=== PATIENT | female | born 1960 | race Caucasian/White ===

== ENCOUNTER 2019-05-11 08:23 | Emergency (ER) | payer OTHER ==
[~2019-05-11] VITALS: Ht 157.5 cm; Wt 72.6 kg
[~2019-05-11 08:23] MED LIST: ADVAIR 250-501 EACH INH; ADVIL200 MG PO; ATIVAN0.5 MG PO; COMBIVENT RESPIM4 GM INH; DOXYCYCLINE HY100 MG PO; EFFEXOR XR150 MG PO; FLOVENT HFA12 G1 INH; GABAPENTIN300 MG PO; IPRAT-ALBUT 0.5-3 ML INH; LEXAPRO20 MG PO; LISINOPRIL-HCT1 EAC2 PO; LISINOPRIL40 MG PO; LOMOTIL TABLET1 EACH PO; LORAZEPAM0.5 MG PO; LORAZEPAM1 MG PO; MELATONIN5 M2 PO; NATURAL VEG LA1 EACH PO; OMEPRAZOLE20 MG PO; PANTOPRAZOLE SO40 MG PO; PROAIR HFA8.5 GM INH; QVAR REDIHALE10.6 G1; RANITIDINE HCL150 MG; SENNA PLUS TAB1 EACH PO; SPIRIVA18 MCG INH; TYLENOL EXTRA500 MG PO; TYLENOL325 MG PO; UNISOM25 MG PO; VENLAFAXINE HCL50 MG PO; VENTOLIN HFA18 GM INH; ZOFRAN ODT4 MG SL; ZOFRAN ODT8 MG PO
--- OUTSIDE RECORDS SUMMARY | 2019-05-11 08:26 | XMS ---
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 Care History Medical/Surgical 01/04/2018 [facility] - PATIENT HAS A FOLLOW UP APT WITH DR KOO- 01/11 @ 8:00AM. - Patient is currently established with [facility]. If patient is seen in the ED during business hours. Please contact CHWs at [facility]. Care Recommendation: This patient has had 5 or more Emergency Department visits in the last 12 months.\T\nbsp; Patient requires education on the scope and purpose of the ED as an acute care provider not a Primary Care Provider and should not be utilized for chronic conditions.\T\nbsp; These are guidelines and the provider should exercise clinical judgment when providing care. E.D. VISIT COUNT (12 MO.) 1 [facility] TOTAL 1 NOTE: Visits indicate total known visits. ED/UCC VISIT TRACKING (12 MO.) 05/11/2019 08:23 [facility] [place] TYPE: Emergency COMPLAINT: - FLU SYMPTOMS, HX OF COPD INPATIENT VISIT TRACKING (12 MO.) No inpatient visits to display in this time frame [email or web address]
[2019-05-11] MEDS ORDERED: TRELEGY ELLIPT1 EACH INH (09:06)
[2019-05-11] MEDS ORDERED: PREDNISONE20 MG PO (09:33)
== END 2019-05-11 09:42 | disposition home or self-care (01) ==
LOC: ED 08:23
DX: J44.1 Chronic obstructive pulmonary disease with (acute) exacerbation (principal); I10 Essential (primary) hypertension; Z87.891 Personal history of nicotine dependence; Z88.0 Allergy status to penicillin; Z88.5 Allergy status to narcotic agent; Z88.2 Allergy status to sulfonamides; Z88.1 Allergy status to other antibiotic agents; Z79.899 Other long term (current) drug therapy
CPT/HCPCS: 71046; 99284-25; J7512

== ENCOUNTER 2021-02-13 08:45 | Emergency (ER) | payer OTHER ==
[~2021-02-13] VITALS: Ht 157.5 cm; Wt 68.5 kg
[~2021-02-13 08:45] MED LIST changes: +PREDNISONE20 MG PO; +TRELEGY ELLIPT1 EACH INH
--- OUTSIDE RECORDS SUMMARY | 2021-02-13 08:48 | XMS ---
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 - Patient is currently established with [facility]. If patient is seen in the ED during business hours. Please contact CHWs at [facility]. Care Recommendation: This patient has had [...] care. E.D. VISIT COUNT (12 MO.) 1 [facility] TOTAL 1 NOTE: Visits indicate total known visits. ED/UCC VISIT TRACKING (12 MO.) 02/13/2021 08:46 [facility] [place] TYPE: Emergency COMPLAINT: - BLOODY CAUGH INPATIENT VISIT TRACKING (12 MO.) No inpatient visits to display in this time frame [email or web address]
[2021-02-13] MEDS ORDERED: PREDNISONE20 MG PO (09:53)
== END 2021-02-13 10:06 | disposition home or self-care (01) ==
LOC: ED 08:45
DX: J20.9 Acute bronchitis, unspecified (principal); I10 Essential (primary) hypertension; Z87.891 Personal history of nicotine dependence; Z88.0 Allergy status to penicillin; Z88.5 Allergy status to narcotic agent; Z88.1 Allergy status to other antibiotic agents; Z88.2 Allergy status to sulfonamides; Z79.899 Other long term (current) drug therapy
CPT/HCPCS: 71046; 99283-25; J7512

== ENCOUNTER 2021-07-18 14:41 | Emergency (ER) | payer OTHER ==
[~2021-07-18] VITALS: Ht 157.5 cm; Wt 68.5 kg
--- OUTSIDE RECORDS SUMMARY | 2021-07-18 14:44 | XMS ---
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 Koo on 02/29/2020 02/14/2021 [facility] - Patient is currently established with [facility]. If patient is seen in the ED during business hours. Please contact CHWs at [facility]. Care Recommendation: This patient has had 5 or more Emergency Department visits in the last 12 months. Patient requires education on the scope and purpose of the ED as an acute care provider not a Primary Care Provider and should not be utilized for chronic conditions. These are guidelines and the provider should exercise clinical judgment when providing care. E.D. VISIT COUNT (12 MO.) 2 [facility]ALY[facility] Villatoro TOTAL 2 NOTE: Visits indicate total known visits. ED/UCC VISIT TRACKING (12 MO.) 07/18/2021 14:41 [facility] [place] TYPE: Emergency COMPLAINT: - SOB 02/13/2021 08:46 [facility] [place] TYPE: Emergency COMPLAINT: - BLOODY CAUGH DIAGNOSES: - Other assisted (current) drug therapy - Acute bronchitis, unspecified - COUGH, UNSPECIFIED - Allergy status to penicillin - Personal history of nicotine dependence - Essential (primary) hypertension - Allergy status to sulfonamides - Allergy status to narcotic agent - Allergy status to other antibiotic agents INPATIENT VISIT TRACKING (12 MO.) No inpatient visits to display in this time frame [email or web address]
[2021-07-18] MEDS ORDERED: PREDNISONE20 MG PO (18:16)
== END 2021-07-18 18:32 | disposition home or self-care (01) ==
LOC: ED 14:41
DX: J44.1 Chronic obstructive pulmonary disease with (acute) exacerbation (principal); I10 Essential (primary) hypertension; J44.9 Chronic obstructive pulmonary disease, unspecified; Z87.891 Personal history of nicotine dependence; Z88.0 Allergy status to penicillin; Z88.5 Allergy status to narcotic agent; Z88.2 Allergy status to sulfonamides; Z79.899 Other long term (current) drug therapy; Z79.52 Long term (current) use of systemic steroids; Z20.822 Contact with and (suspected) exposure to COVID-19
CPT/HCPCS: 71045; 87502; 94640; 99285-25; C9803; J7512; U0003

== ENCOUNTER 2021-08-08 17:11 | Emergency (ER) | payer OTHER ==
[~2021-08-08] VITALS: Ht 157.5 cm; Wt 68.5 kg
--- OUTSIDE RECORDS SUMMARY | 2021-08-08 17:14 | XMS ---
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 Mackenzie on 02/29/2020 02/14/2021 [facility] - Patient is currently established with [facility]. If patient is seen in the ED during business hours. Please contact CHWs at [facility]. Care Recommendation: This patient has [...] providing care. E.D. VISIT COUNT (12 MO.) [address] [facility] TOTAL 3 NOTE: Visits indicate total known visits. ED/UCC VISIT TRACKING (12 MO.) 08/08/2021 17:11 [facility] [place] TYPE: Emergency COMPLAINT: - SOB 07/18/2021 14:41 [facility] [place] TYPE: Emergency COMPLAINT: - SOB DIAGNOSES: - Chronic obstructive pulmonary disease with (acute) exacerbation - Allergy status to sulfonamides - Personal history of nicotine dependence - Allergy status to narcotic agent - Allergy status to penicillin - Chronic obstructive pulmonary disease, unspecified - Shortness of breath - residential (current) use of systemic steroids - Essential (primary) hypertension - Other continuous churn buttermaker (current) drug therapy - Contact with and (suspected) exposure to COVID-19 02/13/2021 08:46 [facility] [place] TYPE: Emergency COMPLAINT: - BLOODY CAUGH DIAGNOSES: - Other continuous churn buttermaker (current) drug therapy - Acute bronchitis, unspecified - COUGH, UNSPECIFIED - Allergy status to penicillin - Personal history of nicotine dependence - Essential (primary) hypertension - Allergy status to sulfonamides - Allergy status to narcotic agent - Allergy status to other antibiotic agents INPATIENT VISIT TRACKING (12 MO.) No inpatient visits to display in this time frame [email or web address]
[2021-08-08] MEDS ORDERED: IPRAT-ALBUT 0.5-3 ML INH (20:53)
[2021-08-08] MEDS ORDERED: medrol dose pack (20:53)
[2021-08-08] MEDS ORDERED: ZITHROMAX500 MG PO (20:53)
--- NOTE | 2021-08-08 21:32 | EKG ---
[facility] [address] [place], [place] [address] Signed Normal sinus rhythm Normal ECG When compared with ECG of 28-JAN-2018 11:33, No significant change was found Confirmed by MICHAEL DE LA GARZA MD ([id number]) on 08/08/2021 9:32:09 PM Electronically Signed By: MICHAEL DE LA GARZA MD 08/08/212131 PATIENT NAME: ZACHARY OBRIEN Electrocardiogram DATE OF : 58 PHYSICIAN: MICHAEL DE LA GARZA MD REPORT #: [id number] REPORT IS CONFIDENTIAL AND NOT TO BE RELEASED WITHOUT AUTHORIZATION
== END 2021-08-08 21:49 | disposition home or self-care (01) ==
LOC: ED 17:11
DX: J44.1 Chronic obstructive pulmonary disease with (acute) exacerbation (principal); I10 Essential (primary) hypertension; Z87.891 Personal history of nicotine dependence; Z88.0 Allergy status to penicillin; Z88.5 Allergy status to narcotic agent; Z88.8 Allergy status to other drugs, medicaments and biological substances; Z79.899 Other long term (current) drug therapy; Z79.52 Long term (current) use of systemic steroids; Z79.51 Long term (current) use of inhaled steroids
CPT/HCPCS: 36415; 71045; 80053; 83735; 83880; 84484; 85025; 93005; 93010; 94640; 94645; 96374; 99285-25; A9270; J2930

== ENCOUNTER 2022-12-08 11:08 | Emergency (ER) | payer MEDICARE, OTHER ==
[~2022-12-08] VITALS: Ht 157.5 cm; Wt 68.5 kg
[~2022-12-08 11:08] MED LIST changes: +ZITHROMAX500 MG PO; +medrol dose pack
--- OUTSIDE RECORDS SUMMARY | 2022-12-08 11:12 | XMS ---
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 CARE PROVIDERS EBER KOOCOLM Internal Medicine 02/14/2021-Current PHONE: Unknown -, [place]- Dentist: Claims Service Adjustor [facility] PHONE: [phone] Care Guidelines exist for the following facilities: [facility] ( 08/05/2019 ) Care History Medical/Surgical 02/15/2021 [facility] Follow up with Dr. Koo on 02/29/2020 02/14/2021 [facility] - Patient is currently established with [facility]. If patient is seen in the ED during business hours. Please contact CHWs at [facility]. Care Recommendation: This patient has had [...] 1 NOTE: Visits indicate total known visits. ED/C VISIT TRACKING (12 MO.) 12/08/2022 11:08 [facility] [place] TYPE: Emergency COMPLAINT: - SOB, CHEST PAIN INPATIENT VISIT TRACKING (12 MO.) No inpatient visits to display in this time frame [email or web address]
[2022-12-08 11:43] LABS: BASOPHILS 0.7 % (0-2); EOSINOPHILS 1.3 % (0-6); HEMATOCRIT 44.1 % (35.0-50.0); HEMOGLOBIN 14.8 g/dL (12.0-18.0); LYMPHOCYTES 21.9 % (24-44); MCH 32.9 (27-36); MCHC 33.6 g/dl (30-36); MCV 97.9 fl (81-99); MONOCYTES 7.8 % (0-12); NEUTROPHILS 68.3 % (39-80); PLATELET COUNT 235 K/uL (140-440); RBC 4.51 M/ul (4.3-5.7); RDW 14.7 (10.5-15.0)
[2022-12-08 12:05] LABS: ALBUMIN 3.9 g/dL (3.4-5.0); ALBUMIN/GLOBULIN RATIO 1.26 (1.1-2.4); BILIRUBIN, TOTAL 0.5 ng/dL (0.2-1.0); BUN/CREATININE RATIO 7.95 (6.0-28.6); CALCIUM 9.8 mg/dL (8.5-10.1); CREATININE, SERUM 0.88 mg/dL (0.55-1.02)
[2022-12-08 12:42] LABS: INFLUENZA B NAA NEGATIVE (NEGATIVE); RESPIRATORY SYNCYTIAL VIR NAA NEGATIVE (NEGATIVE)
[2022-12-08] MEDS ORDERED: PREDNISONE20 MG PO (13:22)
[2022-12-08 13:35] VITALS: BP 133/77
[2022-12-08] MEDS ORDERED: VENTOLIN HFA18 GM INH (13:37)
--- NOTE | 2022-12-09 06:00 | EKG ---
[facility] [address] [place], [place] [address] Signed Normal sinus rhythm Normal ECG When compared with ECG of 08-AUG-2021 17:23, No significant change was found Confirmed by MARY ACUÑA MD ([id number]) on 12/09/2022 6:00:08 AM Electronically Signed By: MARY ACUÑA 12/09/22 0600 PATIENT NAME: ZACHARY ORBIEN Electrocardiogram DATE OF : 58 PHYSICIAN: MARY ACUÑA REPORT #: [id number] REPORT IS CONFIDENTIAL AND NOT TO BE RELEASED WITHOUT AUTHORIZATION
== END 2022-12-08 13:35 | disposition home or self-care (01) ==
LOC: ED 11:08
PROVIDERS: Emergency Medicine
DX: U07.1 COVID-19 (principal); J44.1 Chronic obstructive pulmonary disease with (acute) exacerbation; Z88.0 Allergy status to penicillin; Z88.1 Allergy status to other antibiotic agents; Z88.2 Allergy status to sulfonamides; Z88.5 Allergy status to narcotic agent; Z88.8 Allergy status to other drugs, medicaments and biological substances; Z79.899 Other long term (current) drug therapy; Z79.51 Long term (current) use of inhaled steroids
CPT/HCPCS: 36415; 71045; 80053; 83880; 84484; 85025; 87502; 93005; 93010; 96374; 99285-25; C9803; J2930; U0002

== ENCOUNTER 2022-12-15 06:41 | Emergency (ER) | payer MEDICARE, OTHER ==
--- OUTSIDE RECORDS SUMMARY | 2022-12-15 06:48 | XMS ---
PreManage Notification: ZACHARY OBRIEN Security Appellate Conferee Events No recent Security Events currently on file CRITERIA MET - PDM - [facility] - 2 Visits in 30 Days CARE PROVIDERS PRAVIN KOO Internal Medicine 02/14/2021-Current PHONE: Unknown -, [place]- Dentist: Toll Test Desk Worker [facility] PHONE: [phone] Care Guidelines exist for the following facilities: [facility] ( 08/05/2019 ) Care History Medical/Surgical 02/15/2021 [facility] Follow up with Dr. Koo on 02/29/2020 02/14/2021 [facility] - Patient is currently established with [facility]. If patient is seen in the ED during business hours. Please contact CHWs at [facility]. Care Recommendation: This patient has [...] care. E.D. VISIT COUNT (12 MO.) 2 [facility] TOTAL 2 NOTE: Visits indicate total known visits. ED/C VISIT TRACKING (12 MO.) 12/15/2022 06:41 [facility] [place] TYPE: Emergency COMPLAINT: - SOB 12/08/2022 11:[address] [facility] [place] TYPE: Emergency COMPLAINT: - SOB, CHEST PAIN DIAGNOSES: - Allergy status to narcotic agent - Allergy status to other antibiotic agents - Allergy status to other drugs, medicaments and biological substances - Allergy status to penicillin - Allergy status to sulfonamides - Chronic obstructive pulmonary disease with (acute) exacerbation - COVID-19 - long term care pharmacist (current) use of inhaled steroids - Other correction (current) drug therapy - Shortness of breath INPATIENT VISIT TRACKING (12 MO.) No inpatient visits to display in this time frame [email or web address]
[2022-12-15 06:54] LABS: BASOPHILS 0.3 % (0-2); EOSINOPHILS 0.4 % (0-6); HEMATOCRIT 41.3 % (35.0-50.0); HEMOGLOBIN 13.7 g/dL (12.0-18.0); LYMPHOCYTES 16.2 % (24-44); MCH 32.9 (27-36); MCV 99.4 fl (81-99); MONOCYTES 10.3 % (0-12); NEUTROPHILS 72.8 % (39-80); PLATELET COUNT 210 K/uL (140-440); RBC 4.16 M/ul (4.3-5.7); RDW 14.8 (10.5-15.0)
[2022-12-15 06:55] LABS: PH, VENOUS 7.346 (7.31-7.41)
[2022-12-15 07:22] LABS: ALBUMIN 3.1 g/dL (3.4-5.0); ALBUMIN/GLOBULIN RATIO 1.03 (1.1-2.4); ANION GAP 7.2 (7-21); BILIRUBIN, TOTAL 0.2 ng/dL (0.2-1.0); BUN/CREATININE RATIO 9.78 (6.0-28.6); CALCIUM 8.7 mg/dL (8.5-10.1); CREATININE, SERUM 0.92 mg/dL (0.55-1.02); POTASSIUM 4.2 mmol/L (3.5-5.1); PROTEIN, TOTAL 6.1 g/dL (6.4-8.2)
[2022-12-15] MEDS ORDERED: PREDNISONE20 MG PO ×2 (08:48→09:43)
[2022-12-15 10:32] VITALS: BP 120/92
== END 2022-12-15 10:34 | disposition home or self-care (01) ==
LOC: ED 06:41
PROVIDERS: Family Medicine
DX: U07.1 COVID-19 (principal); J44.1 Chronic obstructive pulmonary disease with (acute) exacerbation; I10 Essential (primary) hypertension; Z79.52 Long term (current) use of systemic steroids; Z79.899 Other long term (current) drug therapy; Z88.0 Allergy status to penicillin; Z88.2 Allergy status to sulfonamides; Z88.5 Allergy status to narcotic agent; Z88.8 Allergy status to other drugs, medicaments and biological substances
CPT/HCPCS: 36415; 71045; 80053; 82803; 83880; 85025; 85379; 94640; 99285-25

== ENCOUNTER 2022-12-29 12:23 | Emergency (ER) | payer MEDICARE, OTHER ==
[~2022-12-29] VITALS: Ht 157.5 cm; Wt 68.5 kg
--- OUTSIDE RECORDS SUMMARY | 2022-12-29 12:26 | XMS ---
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 Mackenize on 02/29/2020 02/14/2021 [facility] - Patient is currently established with [facility]. If patient is seen in the ED during business hours. Please contact CHWs at [facility]. Care Recommendation: This patient has [...] 3 NOTE: Visits indicate total known visits. ED/C VISIT TRACKING (12 MO.) 12/29/2022 12:24 [facility] [place] TYPE: Emergency COMPLAINT: - L HIP PAIN, HIGH HEART RATE, SOB 12/15/2022 06:41 [facility] [place] TYPE: Emergency COMPLAINT: - SOB DIAGNOSES: - Allergy status to narcotic agent - Allergy status to other drugs, medicaments and biological substances - Allergy status to penicillin - Allergy status to sulfonamides - Chronic obstructive pulmonary disease with (acute) exacerbation - COVID-19 - Essential (primary) hypertension - termite helper (current) use of systemic steroids - Other terminal manager (current) drug therapy - Shortness of breath 12/08/2022 11:08 [facility] [place] TYPE: Emergency COMPLAINT: - SOB, CHEST PAIN DIAGNOSES: - Allergy status to narcotic agent - Allergy status to other antibiotic agents - Allergy status to other drugs, medicaments and biological substances - Allergy status to penicillin - Allergy status to sulfonamides - Chronic obstructive pulmonary disease with (acute) exacerbation - COVID-19 - nursing home (current) use of inhaled steroids - Other snf (current) drug therapy - Shortness of breath INPATIENT VISIT TRACKING (12 MO.) No inpatient visits to display in this time frame [id number]
[2022-12-29] MEDS ORDERED: PREDNISONE20 MG PO (13:50)
[2022-12-29] MEDS ORDERED: HYDROCODON-ACE1 EA10 PO (13:50)
[2022-12-29 13:59] VITALS: BP 146/93
== END 2022-12-29 14:01 | disposition home or self-care (01) ==
LOC: ED 12:23
DX: J44.1 Chronic obstructive pulmonary disease with (acute) exacerbation (principal); M54.42 Lumbago with sciatica, left side; I10 Essential (primary) hypertension; Z87.891 Personal history of nicotine dependence; Z88.8 Allergy status to other drugs, medicaments and biological substances; Z88.0 Allergy status to penicillin; Z88.5 Allergy status to narcotic agent; Z88.1 Allergy status to other antibiotic agents; Z88.2 Allergy status to sulfonamides; Z79.899 Other long term (current) drug therapy
CPT/HCPCS: 71045; 94640; 99283-25; A9270; J7512

== ENCOUNTER 2023-04-03 15:40 | Observation (INO) | payer MEDICARE, OTHER ==
[~2023-04-03] VITALS: Ht 157.5 cm; Wt 58.0 kg
[~2023-04-03 15:40] MED LIST changes: +HYDROCODON-ACE1 EA10 PO; +ZESTRIL20 MG PO
[2023-04-03] MEDS ORDERED: ALBUTEROL/IPRATROPIUM 3 ML NEB INH PRN (15:45)
[2023-04-03] MEDS ORDERED: ESCITALOPRAM OX20 MG PO (15:59)
[2023-04-03] MEDS ORDERED: CHLORPROMAZINE25 MG PO (15:59)
[2023-04-03] MEDS ORDERED: ALBUTEROL SULFATE 0.5% 2.5 MG/0.5 ML VIAL INH ONE (16:00)
[2023-04-03] MEDS ORDERED: methylPREDNISolone SOD SUCC 125 MG/2 ML VIAL IV ONE (16:00)
[2023-04-03 16:05] LABS: BASOPHILS 0.3 % (0-2); EOSINOPHILS 0.6 % (0-6); HEMATOCRIT 43.4 % (35.0-50.0); HEMOGLOBIN 14.5 g/dL (12.0-18.0); LYMPHOCYTES 13.1 % (24-44); MCH 33.5 (27-36); MCHC 33.5 g/dl (30-36); MONOCYTES 11.2 % (0-12); NEUTROPHILS 74.8 % (39-80); PLATELET COUNT 202 K/uL (140-440); RBC 4.34 M/ul (4.3-5.7); RDW 13.1 (10.5-15.0)
[2023-04-03 16:25] LABS: ALBUMIN 2.9 g/dL (3.4-5.0); ALBUMIN/GLOBULIN RATIO 0.94 (1.1-2.4); ANION GAP 9.4 (7-21); BILIRUBIN, TOTAL 0.4 ng/dL (0.2-1.0); BUN/CREATININE RATIO 10.28 (6.0-28.6); CREATININE, SERUM 1.07 mg/dL (0.55-1.02); MAGNESIUM 1.8 mg/dL (1.8-2.4); POTASSIUM 4.4 mmol/L (3.5-5.1)
[2023-04-03] MEDS ORDERED: AZITHROMYCIN 500 MG in DEXTROSE 5% 250 ML IV SCH (17:36)
[2023-04-03] MEDS ORDERED: PANTOPRAZOLE SODIUM 40 MG TABEC PO SCH (17:38)
[2023-04-03 17:40] LABS: INFLUENZA B NAA NEGATIVE (NEGATIVE); RESPIRATORY SYNCYTIAL VIR NAA NEGATIVE (NEGATIVE)
[2023-04-03] MEDS ORDERED: ondansetron HCL 4 MG/2 ML VIAL IV PRN (18:30)
[2023-04-03] MEDS ORDERED: PROCHLORPERAZINE EDISYLATE 10 MG/2 ML VIAL IV PRN (18:30)
[2023-04-03] MEDS ORDERED: ACETAMINOPHEN 325 MG TAB PO PRN (18:30)
[2023-04-03 18:48] VITALS: BP 150/88
[2023-04-03] MEDS ORDERED: AZITHROMYCIN 500 MG VIAL ONE (18:53)
--- NOTE | 2023-04-03 19:00 | NUR ---
PT TO FLOOR VIA STRETCHER. ABLE TO AMB IN ROOM INDEPENDENTLY. SATS 92 ON 3LNC. STATES SHE FEELS SO MUCH BETTER NOW. EATING A LUNCH BOX. ANSWERED HX QUESTIONS. TALKED ABOUT HER SISTER THAT WAS A PT AND . UP TO BATHRROM RIGHT AWAY. DENIES CONCERNS ATT. ADMINISNTERED SCHEDULED MEDS.
--- NOTE | 2023-04-03 19:10 | NUR ---
SHIFT REPORT RECEIVED FROM DAYSHIFT RN CHILO, QUESTIONS ANSWERED. THIS RN TO TAKE OVER pt CARE AT THIS TIME. pt ON 3LNC, RR EVEN AND UNLABORED. pt DENIES SOB AT THIS TIME, SPO2 93%, HR 80'S. NO DISTRESS NOTED. IV SITE WNL, IV ABX INFUSING DIRECTED. 200MLS EMPTIED FROM HAT IN BATHROOM, pt INDEPENDENT IN ROOM. pt VERBALIZED UNDERSTANDING TO USE CALL LIGHT FOR NEEDS/CONCERNS AND AFTER SHE VOIDS TO OBTAIN ACCURATE URINE OUTPUT. CALL LIGHT IN REACH, BOARD UPDATED. pt LEFT WATCHING CRIME SHOW ON TV.
[2023-04-03] MEDS ORDERED: ALBUTEROL/IPRATROPIUM 3 ML NEB INH SCH (20:00)
[2023-04-03 20:25] VITALS: BP 156/85
--- NOTE | 2023-04-03 20:25 | NUR ---
pt UP AT DOOR, REPORTS HER IV PUMP ALARMING. ISSUE RESOLVED, IV ABX COMPLETED. IV SITE WNL, BRISK BLOOD RETURN NOTED AND IV SITE SALINE LOCKED. ALCOHOL CAP IN PLACE. pt REPORTS SOB FOLLOWING AMBULATION TO DOOR, RT DREW IN ROOM AND ADMINISTRATED SCHEDULED 1999 BREATHING TREATMENT, VS AND I&O'S ALSO COMPLETE. LIGHT WHEEZING NOTED IN LEFT UPPER LOBE, REMAINING LOBES DIMINISHED; FOLLOWING TREATMENT. pt REPORTS SOB IMPROVING, pt NOW TALKING IN SENTENCE FORMATION ABOUT HER CRIME SHOW ENDING. pt ASKING FOR FROZEN LEMONADE, PROVIDED PER pt REQUEST. BCS AT BEDSIDE FOR BATHROOM USE FOR THE NIGHT PER pt REQUEST, WIPES AND TRASH CAN ALSO IN REACH. WILL CONTINUE TO MONITOR, CALL LIGTH IN REACH. RT DREW TO RETURN "IN A COUPLE HOURS" FOR ADDITIONAL BREATHING TREATMENT BEFORE BED-pt AGREES TO POC.
[2023-04-03 20:28] VITALS: BP 156/85
[2023-04-03] MEDS ORDERED: MELATONIN 3 MG TAB PO PRN (21:00)
--- NOTE | 2023-04-03 21:20 | NUR ---
DR SPRINGER AT RN STATION AND PROVIDED WITH pt UPDATE SINCE START OF SHIFT. MD AGREES TO POC FOR THE NIGHT, PER MD-ENCOURAGE AMBUALTION TOLERATED BUT OKAY WITH USING BSC FOR NOW. PER MD, pt TO BE POSSIBLE DISCHARGE TOMORROW DEPENDING ON pt STATUS. WILL CONTINUE TO MONITOR.
[2023-04-03] MEDS ORDERED: methylPREDNISolone SOD SUCC 125 MG/2 ML VIAL IV SCH (22:00)
--- NOTE | 2023-04-03 22:14 | NUR ---
rounded on pt, pt awake and resting in bed. pt asks about whether she'll be discharged home on abx and steriods. pt states, "when i go home on both steriods and abx even when i don't have an infection i always feel so much better". discussed with pt md arrives to floor tomorrow morning and will begin his rounding and pt can discuss discharge poc with md at rounds, pt verbalized understanding. pt asking for sandwich box, provided. pt using bsc without difficulty and remains independent. call light in reach.
--- NOTE | 2023-04-03 23:15 | NUR ---
scheduled solu-medrol given-see emar. iv site remained wnl before and after medication administration. pt reports she's used the IS "30 times" and the acapella (50 times) total since start of shift, resulting in coughing up sputum. pt appreciative of cares and otne additional needs or concerns. call light in reach.
[2023-04-04] VITALS (7 sets, daily range): BP systolic 153–173; BP diastolic 80–93
--- NOTE | 2023-04-04 00:13 | NUR ---
ROUNDED ON pt, pt AWAKE AND RESTING QUIETLY IN BED AND REMAISN ON 3LNC. pt REPORTS NO INCREASED SOB WHEN AMBULATING TO BSC AND REPORTS SHE IS TOLERATING IT WELL. NO NEED SOR CONCERNS, BOARD UPDATED AND CALL LIGHT IN REACH. 300MLS EMPTIED FROM BSC.
--- NOTE | 2023-04-04 01:27 | NUR ---
pt RESTING QUIETLY IN BED WITH EYES CLOSED, ON 3LNC. RR EVEN AND UNLABORED WITH NO DISTRESS NOTED, CALL LIGHT IN REACH.
--- NOTE | 2023-04-04 02:00 | NUR ---
IN ROOM TO ROUND ON pt, pt AWAKE AND RESTING IN BED. VS AND I&O'S COLLECTED. pt STATES, "I SLEPT FOR ABOUT AN HOUR". QUESTIONS ANSWERED REGARDING IV STERIODS pt REPORTS FEELING A LITTLE "JITTERY" AT TIMES AND NOT SLEEPING VERY WELL, pt REMAISN PLEASANT WITH CARES. EDUCATION PROVIDED ON MEDICATIONS AND pt VERBALIZED UNDERSTANDING. pt DECLINES PRN SLEEP AID, PAIN MEDS, AND NASUEA MEDS. pt DENEIS PAIN AND NAUSEA. SCATTERED WHEEZES REMAIN NOTED, NO DISTRESS. IS AND ACAPELLA REMAINS AT BEDSIDE. NO FURTHER NEEDS, FRESH WATER PROVIDED AND CALL LIGHT IN REACH.
--- NOTE | 2023-04-04 03:35 | NUR ---
pt RESTING IN BED, ON 3LNC. RR EVEN AND UNLABORED. NO DISRESS NOTED. CALL LIGHT AND PERSONAL BELONGINGS REMAIN IN REACH. WILL CONTINUE TO MONITOR.
--- NOTE | 2023-04-04 04:19 | NUR ---
ROUNDED ON pt, pt RESTING QUIETLY IN BED WITH EYES CLOSED. RR EVEN AND UNLABORED. SPO2 94%, HR LOW 90'S. NO DISTRESS NOTED, CALL LIGHT IN REACH.
--- NOTE | 2023-04-04 05:20 | NUR ---
rounded on pt, pt awake and resting in bed. lab in room. vs and i&o's collected. pt up independently from bed to bathroom on 3lnc, spo2 returning to bed 78%, quickly yaa to mid 80's with encouragement of deep breathing. another 30-40 seconds (approx), spo2 yaa to 93%, still on 3lnc. fresh water provided and call light in reach.
[2023-04-04 05:30] LABS: BASOPHILS 0.2 % (0-2); EOSINOPHILS 0.1 % (0-6); HEMOGLOBIN 14.5 g/dL (12.0-18.0); MCH 33.5 (27-36); MCHC 33.7 g/dl (30-36); MCV 99.5 fl (81-99); MONOCYTES 1.8 % (0-12); NEUTROPHILS 87.9 % (39-80); PLATELET COUNT 184 K/uL (140-440); RBC 4.33 M/ul (4.3-5.7); RDW 12.6 (10.5-15.0)
[2023-04-04 05:41] LABS: ANION GAP 8.9 (7-21); BUN/CREATININE RATIO 11.36 (6.0-28.6); CALCIUM 9.5 mg/dL (8.5-10.1); CREATININE, SERUM 0.88 mg/dL (0.55-1.02); POTASSIUM 4.9 mmol/L (3.5-5.1)
--- NOTE | 2023-04-04 06:11 | NUR ---
SCHEDULED MED PROVIDED. IV WNL. PUDDING PROVIDED PER REQUEST. PT STATES NO OTHER NEEDS AT THIS TIME. CALL LIGHT IN REACH.
--- NOTE | 2023-04-04 06:16 | NUR ---
dr diaz at rn station and updated on pt desat to 78% when ambulating to bathroom and timeline to returning to wnl-see previous note from this rn. md diaz now in room rounding on pt, no new orders received.
--- NOTE | 2023-04-04 06:33 | NUR ---
VERBAL ORDER READ BACK TO START pt ON 10MG PO SINGULAIR DAILY, TO START NOW.
[2023-04-04] MEDS ORDERED: MONTELUKAST SODIUM 10 MG TAB PO ONE (06:45)
--- NOTE | 2023-04-04 06:46 | NUR ---
SCHEDULED SINGULAIR ADMINISTERED-SEE EMAR. pt REPORTS MD WENT OVER MEDICATION WITH HER AND pt VERBALIZED UNDERSTANDING WITH POC. pt REMAINS HOPEFUL TO BE DISCHARGED TODAY "AROUND LUNCH TIME". NO NEEDS OR CONCERNS VERBALIZED, CALL LIGHT IN REACH.
--- NOTE | 2023-04-04 07:20 | NUR ---
REPORT RECEIVED FROM COLD PRESS OPERATOR LAURA HARDIN. PATIENT IS SITTING UPRIGHT IN BED AND IS ON 3 L NASAL CANNULA. PATIENT WITH TV ON. PATIENT WHITE BOARD IN ROOM IS UP TO DATE. PATIENT STATED NO FURTHER NEEDS AT THIS TIME. CALL LIGHT AND PERSONAL BELONGINGS ARE WITHIN REACH.
--- NOTE | 2023-04-04 07:46 | EKG ---
[facility] [address] [place] [address] Signed Sinus tachycardia with premature atrial complexes with aberrant conduction Nonspecific ST abnormality Abnormal ECG When compared with ECG of 24-MAR-2023 11:02, aberrant conduction is now present Nonspecific T wave abnormality no longer evident in Anterior leads Confirmed by DARA SPRINGER MD ([id number]) on 04/04/2023 7:46:31 AM Electronically Signed By: DARA SPRINGER 04/04/23 0746 PATIENT NAME: ZACHARY OBRIEN Electrocardiogram DATE OF : 58 PHYSICIAN: DARA SPRINGER REPORT #: [id number] REPORT IS CONFIDENTIAL AND NOT TO BE RELEASED WITHOUT AUTHORIZATION
--- NOTE | 2023-04-04 07:55 | NUR ---
EYELET PUNCH OPERATOR ENTERED ROOM TO GREET AND INTRODUCE HERSELF TO PT. PT HAD A FRIEND COMING INTO THE ROOM WITH HER. PT REFUSED ANY WATER, A WASHCLOTH FOR HER FACE, AND STATED THAT SHE DID NOT NEED ANY ASSISTANCE AT THIS TIME. CALL LIGHT WITHIN REACH NO FURTHER CONCERNS OR COMPLAINTS.
--- NOTE | 2023-04-04 08:58 | NUR ---
PT STATES THAT SHE IS VERY TIRED AND DIDN'T GET MUCH SLEEP LAST NIGHT. PT REQUESTS TO JUST BE LEFT TO SLEEP. CALL LIGHT WITHIN REACH NO FURTHER COMPLAINTS OR CONCERNS
[2023-04-04] MEDS ORDERED: MONTELUKAST SODIUM 10 MG TAB PO SCH (09:00)
--- NOTE | 2023-04-04 09:15 | NUR ---
PATIENT MORNING MEDICATIONS ADMINISTERED PER THE EMAR. PATIENT EDUCATED ON THE PURPOSE OF PROTONIX AT THIS TIME. PATIENT FULL ASSSESSMENT COMPLETE AND DOCUMENTED IN THE CHART. LUNG SOUNDS WITH EXPIRATORY WHEEZE ON THE RIGHT SIDE WITH DIMINISHED BASES BILATERALLY. LUNG SOUNDS ARE CLEAR IN THE UPPER LOBES ON THE LEFT SIDE. PATIENT IS ON 3 L NC AT THIS TIME. IS AND ACAPELA ARE AT THE BEDSIDE. CARDIAC ASSESSMENT WITH NORMAL S1 AND S2 ON AUSCULTATION, RADIAL AND PEDAL PULSES ARE STRONG BILATERALLY, AND CAPILLARY REFILL IS LESS THAN THREE SECONDS IN THE UPPER AND LOWER EXTREMITIES BILATERALLY. BOWEL TONES ARE ACTIVE IN ALL FOUR QUADRANTS. PATIENT WITH NO COMPLAINTS OF PAIN AND NUMBNESS AND TINGLING AT THIS TIME. IV SITE IS CLEAN, DRY, AND INTACT. IV FLUSHES WELL WITH 10 ML NORMAL SALINE AND IS SALINE LOCKED. PATIENT BREAKFAST TRAY REMOVED FROM THE ROOM. PATIENT STATED NO FURTHER NEEDS AT THIS TIME. CALL LIGHT AND PERSONAL BELONGINGS ARE WITHIN REACH.
--- NOTE | 2023-04-04 09:53 | NUR ---
ENTERED PT ROOM TO RECORD VITALS AND I&OS. PT STATED THAT SHE IS STILL VERY TIRED AND HOPING TO GET SOME REST TODAY. PT REPORTS NO COMPLAINTS. BREAKFAST TRAY WAS ALREADY TAKEN OUT OF ROOM. PT STATED SHE DID NOT NEED ANYTHING AT THIS TIME. CALL LIGHT AND PHONE WITHIN REACH
--- NOTE | 2023-04-04 09:55 | NUR ---
Attempted to see pt. She is sleeping will return later.
--- NOTE | 2023-04-04 10:27 | NUR ---
PATIENT IS AWAKE AND LYING ON THEIR LEFT SIDE. PATIENT IS WATCHING TV. PATIENT WITH [address] PATIENT STATED NO FURTHER NEEDS AT THIS TIME. CALL LIGHT AND PERSONAL BELONGINGS ARE WITHINR EACH.
--- NOTE | 2023-04-04 10:43 | NUR ---
PATIENT AMBULATED IN THE ROOM WITH RN AT BEDSIDE. AFTER AMBULATION SPO2 WAS 84%. PATIENT BROUGHT HERSELF BACK UP TO 92% IN ABOUT 30 SECONDS. PATIENT ON 3 L NASAL CANNULA. PATIENT STATED NO FURTHER NEEDS AT THIS TIME. CALL LIGHT AND PERSONAL BELONGINGS ARE WITHIN REACH. MD NOTIFIED.
--- NOTE | 2023-04-04 11:20 | NUR ---
UM Review 04/04/2023 Pt meets observation care per [facility] guidelines. Continue to monitor progress.
--- NOTE | 2023-04-04 11:25 | NUR ---
PATIENT GIVEN PRN TYLENOL PER THE EMAR FOR PAIN RATE 2/10 IN THE NECK. PATIENT HAT IN THE TOILET EMPTIED AND THE VOID AMOUNT RECORDED ON THE BOARD. PATIENT STATED NO FURTHER NEEDS AT THIS TIME. CALL LIGHT AND PERSONAL BELONINGS ARE WITHIN REACH.
[2023-04-04] MEDS ORDERED: PHARMACY RENAL DOSE ADJUSTMENT 1 DOSE MISC PO SCH (12:00)
[2023-04-04] MEDS ORDERED: AZITHROMYCIN 500 MG in DEXTROSE 5% 250 ML IV SCH (12:00)
--- NOTE | 2023-04-04 12:00 | NUR ---
PATIENT IV SITE IS CLEAN, DRY, AND INTACT. PATIENT FLUSHED WELL WITH 10 ML NORMAL SALINE. PATIENT ZITHROMAX DOSE IS INFUSING AT THIS TIME. PATIENT STATED NO FURTHER NEEDS AT THIS TIME. CALL LIGHT AND PERSONAL BELONGINGS ARE WITHIN REACH.
[2023-04-04] MEDS ORDERED: ZITHROMAX250 MG PO (12:20)
--- NOTE | 2023-04-04 12:20 | NUR ---
PATIENT IV SITE BURNING, RED, AND INFILTRATED. IV SITE REMOVED. CATHETER TIP INTACT. PATIENT TOLERATED WELL. SAID TO NOT INSERT ANOTHER IV AND ORDERED FOR THE AZITHROMYCIN DOSE TO NOW BE GIVEN PO. PATIENT BURNING AND NAUSEA IS GOING AWAY AFTER THE INFUSION WAS STOPPED. PATIENT ON ROOM AIR. OXYGEN SATURATION IS BETWEEN 90-93% ON ROOM AIR. PATIENT STATED NO FURTHER NEEDS AT THIS TIME. CALL LIGHT AND PERSONAL BELONGINGS ARE WITHIN REACH.
[2023-04-04] MEDS ORDERED: METHYLPREDNISOLO4 M1 PO (12:21)
[2023-04-04] MEDS ORDERED: AZITHROMYCIN 250 MG TAB PO ONE (12:30)
--- NOTE | 2023-04-04 12:45 | NUR ---
Spoke with Milena. She state she lives in an RV with an addition added on. Her son lives next door. Pt has two steps into her home. She has sob when attempting to walk steps, but states she has always been able to get into her home. She has a concentrator from [employer] and [employer]. Her brother has ordered her a portable concentrator to use on outings. Family are also getting her a transport chair so she can attend her [employer] sports. She is able to drive. She does her own self care, shops, and cooks for herself. She states she has several people to assist her if needed. She denies financial issues at this time as she received a back payment of funds. This caused her to be over income and she lost her foodstamps. She denies needing and again states family provide her with food and money if and when she needs. Pt wants to dc today and her sister will drive her. Dr. Segovia is monitoring her 02 sats and will determine later if she can dc.
--- NOTE | 2023-04-04 13:19 | NUR ---
NOTIFIED OF THE PATIENTS OXYGEN SATURATION THAT IS BETWEEN 89-91% ON ROOM AIR. NO NEW ORDERS AT THIS TIME. CALL ENDED.
[2023-04-04] MEDS ORDERED: ONDANSETRON ODT4 MG SL (13:33)
--- NOTE | 2023-04-04 13:42 | NUR ---
PATIENT COUGHING UPON ENTERING THE ROOM. PATIENT REPORTS SPUTUM IS CLEAR AND MORE THIN THAN IT WAS. PATIENT LUNG SOUNDS ARE CLEAR BILATERALLY IN THE UPPER LUNG LOBES AND WITH EXPIRATORY WHEEZING IN BILATERAL LOWER LUNG ENGEL. PATIENT IS ON ROOM AIR AND OXYGEN SATURATION WAS BETWEEN 90-91%. PATIENT STATED NO FURTHER NEEDS AT THIS TIME. CALL LIGHT AND PERSONAL BELONGINGS ARE WITHIN REACH.
--- NOTE | 2023-04-04 13:42 | NUR ---
TOBACCO SHAKER ENTERED THE ROOM TO RECORD I&OS AND RECORD VITAL SIGNS. PT HAD FINISHED EATING AND WAS RELAXING IN BED. PT REFUSED A SHOWER FOR TODAY AND TOLD TOBACCO SHAKER SHE DID NOT NEED ANYTHING AT THIS TIME. CALL LIGHT WITHIN REACH NO FURTHER COMPLAINTS OR CONCERNS
[2023-04-05] MEDS ORDERED: MONTELUKAST SODIUM 10 MG TAB PO SCH (09:00)
== END 2023-04-04 14:48 | disposition home or self-care (01) ==
LOC: ED 15:40 → MS 15:42
PROVIDERS: Emergency Medicine; ADMIT Internal Medicine; ATTEND Internal Medicine
DX: J44.1 Chronic obstructive pulmonary disease with (acute) exacerbation (principal); I10 Essential (primary) hypertension; Z88.0 Allergy status to penicillin; Z88.5 Allergy status to narcotic agent; Z88.8 Allergy status to other drugs, medicaments and biological substances; Z88.2 Allergy status to sulfonamides; Z20.822 Contact with and (suspected) exposure to COVID-19
CPT/HCPCS: 36415; 71045; 71260; 80048; 80053; 83735; 84484; 85025; 87502; 94640; 94668; 94760; 96365; 96375; 96376; 99285-25; A9270; G0378; J0456; J2930; J7060; Q9967; U0002

== ENCOUNTER 2023-08-10 06:13 | Emergency (ER) | payer MEDICARE, OTHER ==
[~2023-08-10] VITALS: Ht 157.5 cm; Wt 58.0 kg
[~2023-08-10 06:13] MED LIST changes: +CHLORPROMAZINE25 MG PO; +ESCITALOPRAM OX20 MG PO; +METHYLPREDNISOLO4 M1 PO; +ONDANSETRON ODT4 MG PO; +ONDANSETRON ODT4 MG SL; +ONDANSETRON ODT8 MG PO; +PROMETHAZINE HC25 M1 PO; +ZITHROMAX250 MG PO
[2023-08-10] MEDS ORDERED: ALBUTEROL/IPRATROPIUM 3 ML NEB ONE (06:17)
[2023-08-10] MEDS ORDERED: ALBUTEROL/IPRATROPIUM 3 ML NEB INH PRN (06:30)
[2023-08-10] MEDS ORDERED: methylPREDNISolone SOD SUCC 125 MG/2 ML VIAL IV ONE (06:30)
[2023-08-10] MEDS ORDERED: ALBUTEROL SULFATE 0.5% 2.5 MG/0.5 ML VIAL INH ONE (06:30)
[2023-08-10 06:33] LABS: BASOPHILS 0.4 % (0-2); EOSINOPHILS 0.9 % (0-6); HEMATOCRIT 43.1 % (35.0-50.0); HEMOGLOBIN 14.3 g/dL (12.0-18.0); LYMPHOCYTES 38.6 % (24-44); MCH 31.8 (27-36); MCHC 33.2 g/dl (30-36); MCV 95.8 fl (81-99); MONOCYTES 8.5 % (0-12); NEUTROPHILS 51.6 % (39-80); PLATELET COUNT 279 K/uL (140-440); RBC 4.49 M/ul (4.3-5.7); RDW 13.5 (10.5-15.0)
[2023-08-10 06:53] LABS: ALBUMIN 3.9 g/dL (3.4-5.0); ALBUMIN/GLOBULIN RATIO 1.3 (1.1-2.4); ANION GAP 10.9 (7-21); BILIRUBIN, TOTAL 0.4 ng/dL (0.2-1.0); BUN/CREATININE RATIO 15.29 (6.0-28.6); CALCIUM 9.4 mg/dL (8.5-10.1); CREATININE, SERUM 0.85 mg/dL (0.55-1.02); MAGNESIUM 2.2 mg/dL (1.8-2.4); POTASSIUM 3.9 mmol/L (3.5-5.1); PROTEIN, TOTAL 6.9 g/dL (6.4-8.2)
[2023-08-10] MEDS ORDERED: VENTOLIN HFA18 GM INH (07:13)
[2023-08-10 07:34] LABS: INFLUENZA B NAA NEGATIVE (NEGATIVE); RESPIRATORY SYNCYTIAL VIR NAA NEGATIVE (NEGATIVE)
[2023-08-10 07:42] VITALS: BP 156/85
--- NOTE | 2023-08-11 22:09 | EKG ---
[facility] [address] [facility] [place] [address] Signed Sinus tachycardia Otherwise normal ECG When compared with ECG of 03-APR-2023 15:46, aberrant conduction is no longer present Nonspecific T wave abnormality now evident in Inferior leads Confirmed by Janine García MD () on 08/11/2023 10:09:32 PM Electronically Signed By: JANINE GARCÍA MD 08/11/23 2209 PATIENT NAME: ZACHARY OBRIEN Electrocardiogram DATE OF : 58 PHYSICIAN: JANINE GARCÍA MD REPORT #: [id number] REPORT IS CONFIDENTIAL AND NOT TO BE RELEASED WITHOUT AUTHORIZATION
== END 2023-08-10 07:42 | disposition home or self-care (01) ==
LOC: ED 06:13
PROVIDERS: Family Medicine
DX: J44.1 Chronic obstructive pulmonary disease with (acute) exacerbation (principal); I10 Essential (primary) hypertension; Z99.81 Dependence on supplemental oxygen; Z87.891 Personal history of nicotine dependence; Z79.899 Other long term (current) drug therapy; Z88.0 Allergy status to penicillin; Z88.5 Allergy status to narcotic agent; Z88.1 Allergy status to other antibiotic agents; Z88.2 Allergy status to sulfonamides; Z88.8 Allergy status to other drugs, medicaments and biological substances
CPT/HCPCS: 36415; 71045; 80053; 83735; 84484; 85025; 87502; 93005; 93010; 96374; 99285-25; J2919; U0002

== ENCOUNTER 2023-09-18 17:20 | Emergency (ER) | payer MEDICARE, OTHER ==
[~2023-09-18] VITALS: Ht 157.5 cm; Wt 59.4 kg
[~2023-09-18 17:20] MED LIST changes: +ALBUTEROL2.5 MG/3 M INH
[2023-09-18] MEDS ORDERED: ALBUTEROL/IPRATROPIUM 3 ML NEB ONE (17:30)
[2023-09-18] MEDS ORDERED: ALBUTEROL/IPRATROPIUM 3 ML NEB INH PRN (17:30)
[2023-09-18] MEDS ORDERED: methylPREDNISolone SOD SUCC 125 MG/2 ML VIAL IV ONE (17:30)
[2023-09-18] MEDS ORDERED: ALBUTEROL SULFATE 0.083% 3 ML VIAL INH ONE (17:30)
[2023-09-18 17:38] LABS: PH, VENOUS 7.344 (7.31-7.41)
[2023-09-18 17:40] LABS: HEMOGLOBIN 14.5 g/dL (12.0-18.0)
[2023-09-18 17:44] LABS: BASOPHILS 0.3 % (0-2); EOSINOPHILS 0.2 % (0-6); HEMATOCRIT 43.6 % (35.0-50.0); LYMPHOCYTES 17.2 % (24-44); MCH 32.5 (27-36); MCHC 33.3 g/dl (30-36); MCV 97.6 fl (81-99); MONOCYTES 6.8 % (0-12); NEUTROPHILS 75.5 % (39-80); PLATELET COUNT 340 K/uL (140-440); RBC 4.47 M/ul (4.3-5.7); RDW 13.3 (10.5-15.0)
[2023-09-18] MEDS ORDERED: ALBUTEROL SULFATE 0.5% 2.5 MG/0.5 ML VIAL INH ONE (18:00)
[2023-09-18 18:06] LABS: ALBUMIN 3.9 g/dL (3.4-5.0); ALBUMIN/GLOBULIN RATIO 1.15 (1.1-2.4); ANION GAP 11.4 (7-21); BILIRUBIN, TOTAL 0.2 ng/dL (0.2-1.0); BUN/CREATININE RATIO 6.89 (6.0-28.6); CREATININE, SERUM 0.87 mg/dL (0.55-1.02); MAGNESIUM 1.9 mg/dL (1.8-2.4); POTASSIUM 4.4 mmol/L (3.5-5.1); PROTEIN, TOTAL 7.3 g/dL (6.4-8.2)
[2023-09-18 18:49] LABS: INFLUENZA B NAA NEGATIVE (NEGATIVE); RESPIRATORY SYNCYTIAL VIR NAA NEGATIVE (NEGATIVE)
[2023-09-18] MEDS ORDERED: PREDNISONE20 MG PO (19:00)
[2023-09-18] MEDS ORDERED: ondansetron HCL 4 MG/2 ML VIAL IV ONE (19:00)
[2023-09-18 19:35] VITALS: BP 143/103
--- NOTE | 2023-09-18 21:58 | EKG ---
[facility] [address] [facility] [place] [address] Signed Normal sinus rhythm Normal ECG When compared with ECG of 10-AUG-2023 06:48, Nonspecific T wave abnormality no longer evident in Inferior leads Confirmed by DARA SPRINGER MD ([id number]) on 09/18/2023 9:58:06 PM Electronically Signed By: DARA SPRINGER 09/18/23 2158 PATIENT NAME: ZACHARY OBRIEN Electrocardiogram DATE OF : 58 PHYSICIAN: DARA SPRINGER REPORT #: [id number] REPORT IS CONFIDENTIAL AND NOT TO BE RELEASED WITHOUT AUTHORIZATION
== END 2023-09-18 19:35 | disposition home or self-care (01) ==
LOC: ED 17:20
PROVIDERS: Emergency Medicine
DX: J44.1 Chronic obstructive pulmonary disease with (acute) exacerbation (principal); Z99.81 Dependence on supplemental oxygen; I10 Essential (primary) hypertension; Z87.891 Personal history of nicotine dependence; Z79.899 Other long term (current) drug therapy; Z88.0 Allergy status to penicillin; Z88.5 Allergy status to narcotic agent; Z88.2 Allergy status to sulfonamides; Z88.8 Allergy status to other drugs, medicaments and biological substances
CPT/HCPCS: 36415; 71045; 80053; 82803; 83735; 85025; 87502; 93005; 93010; 94640; 96374; 96375; 99285-25; J2405; J2919; U0002

== ENCOUNTER 2024-02-14 14:09 | Emergency (ER) | payer MEDICARE, OTHER ==
[2024-02-14] MEDS ORDERED: ALBUTEROL SULFATE 0.5% 2.5 MG/0.5 ML VIAL INH ONE (14:30)
[2024-02-14] MEDS ORDERED: ALBUTEROL/IPRATROPIUM 3 ML NEB INH PRN (14:30)
[2024-02-14] MEDS ORDERED: methylPREDNISolone SOD SUCC 125 MG/2 ML VIAL IV ONE (14:30)
[2024-02-14] MEDS ORDERED: IPRATROPIUM BROMIDE 2.5 ML VIAL INH ONE (14:30)
[2024-02-14 14:35] LABS: BASOPHILS 0.2 % (0-2); EOSINOPHILS 1.8 % (0-6); HEMATOCRIT 38.4 % (35.0-50.0); HEMOGLOBIN 13.1 g/dL (12.0-18.0); LYMPHOCYTES 11.1 % (24-44); MCH 31.7 (27-36); MCHC 34.1 g/dl (30-36); MCV 92.8 fl (81-99); MONOCYTES 10.7 % (0-12); NEUTROPHILS 76.2 % (39-80); PLATELET COUNT 205 K/uL (140-440); RBC 4.14 M/ul (4.3-5.7); RDW 11.8 (10.5-15.0)
[2024-02-14 14:59] LABS: ALBUMIN 3.1 g/dL (3.4-5.0); ALBUMIN/GLOBULIN RATIO 0.91 (1.1-2.4); ALKALINE PHOSPHATASE 80 U/L (46-116); ALT (SGPT) 19 U/L (14-59); ANION GAP 11.1 (7-21); AST (SGOT) 8 U/L (15-37); BILIRUBIN, TOTAL 0.2 ng/dL (0.2-1.0); CALCIUM 9.5 mg/dL (8.5-10.1); CARBON DIOXIDE 34 mmol/L (21-32); CHLORIDE 99 mmol/L (98-107); GLOMERULAR FILTRATION RATE,EST 71 mL/min (>60); MAGNESIUM 1.9 mg/dL (1.8-2.4); POTASSIUM 4.1 mmol/L (3.5-5.1); PROTEIN, TOTAL 6.5 g/dL (6.4-8.2); UREA NITROGEN 18 mg/dL (7-18)
[2024-02-14 15:11] LABS: INFLUENZA B NAA NEGATIVE (NEGATIVE); RESPIRATORY SYNCYTIAL VIR NAA NEGATIVE (NEGATIVE)
[2024-02-14] MEDS ORDERED: PAXLOVID 300-11 EAC1 PO (17:22)
[2024-02-14] MEDS ORDERED: PREDNISONE20 MG PO (17:22)
[2024-02-14 17:56] VITALS: BP 123/93
--- NOTE | 2024-02-16 11:31 | EKG ---
[facility] [address] [facility] [place] [address] Signed Normal sinus rhythm Normal ECG When compared with ECG of 18-SEP-2023 17:51, Nonspecific T wave abnormality now evident in Anterior leads Confirmed by Maykel Denton MD ([id number]) on 02/16/2024 11:31:32 AM Electronically Signed By: MAYKEL DENTON MD 02/16/24 1131 PATIENT NAME: ZACHARY OBRIEN Electrocardiogram DATE OF : 58 PHYSICIAN: MAYKEL DENTON MD REPORT #: [id number] REPORT IS CONFIDENTIAL AND NOT TO BE RELEASED WITHOUT AUTHORIZATION
== END 2024-02-14 17:48 | disposition home or self-care (01) ==
LOC: ED 14:09
PROVIDERS: Emergency Medicine
DX: U07.1 COVID-19 (principal); J44.1 Chronic obstructive pulmonary disease with (acute) exacerbation; I10 Essential (primary) hypertension; Z99.81 Dependence on supplemental oxygen; Z88.0 Allergy status to penicillin; Z88.2 Allergy status to sulfonamides; Z88.1 Allergy status to other antibiotic agents; Z88.5 Allergy status to narcotic agent; Z88.8 Allergy status to other drugs, medicaments and biological substances; Z79.52 Long term (current) use of systemic steroids; Z79.51 Long term (current) use of inhaled steroids; Z79.899 Other long term (current) drug therapy
CPT/HCPCS: 36415; 71045; 80053; 83735; 83880; 84484; 85025; 87502; 93005; 93010; 94640; 96374; 99285-25; J2919; U0002

== ENCOUNTER 2024-02-22 11:42 | Emergency (ER) | payer MEDICARE, OTHER ==
[~2024-02-22] VITALS: Ht 157.5 cm; Wt 61.7 kg
[~2024-02-22 11:42] MED LIST changes: +PAXLOVID 300-11 EAC1 PO
[2024-02-22] MEDS ORDERED: ALBUTEROL/IPRATROPIUM 3 ML NEB INH PRN (12:00)
[2024-02-22 12:10] LABS: BASOPHILS 0.2 % (0-2); EOSINOPHILS 0.6 % (0-6); HEMATOCRIT 41.2 % (35.0-50.0); HEMOGLOBIN 13.7 g/dL (12.0-18.0); LYMPHOCYTES 7.6 % (24-44); MCH 30.8 (27-36); MCHC 33.3 g/dl (30-36); MCV 92.4 fl (81-99); MONOCYTES 5.2 % (0-12); NEUTROPHILS 86.4 % (39-80); PLATELET COUNT 315 K/uL (140-440); RBC 4.45 M/ul (4.3-5.7); RDW 11.8 (10.5-15.0)
[2024-02-22] MEDS ORDERED: methylPREDNISolone SOD SUCC 125 MG/2 ML VIAL IV ONE (12:15)
[2024-02-22 12:30] LABS: ALBUMIN 3.1 g/dL (3.4-5.0); ALBUMIN/GLOBULIN RATIO 0.72 (1.1-2.4); ALKALINE PHOSPHATASE 76 U/L (46-116); ALT (SGPT) 17 U/L (14-59); AST (SGOT) 10 U/L (15-37); BILIRUBIN, TOTAL 0.4 ng/dL (0.2-1.0); BUN/CREATININE RATIO 16.48 (6.0-28.6); CALCIUM 9.6 mg/dL (8.5-10.1); CARBON DIOXIDE 33 mmol/L (21-32); CHLORIDE 96 mmol/L (98-107); CREATININE, SERUM 0.91 mg/dL (0.55-1.02); GLOMERULAR FILTRATION RATE,EST 70 mL/min (>60); MAGNESIUM 1.9 mg/dL (1.8-2.4); PROTEIN, TOTAL 7.4 g/dL (6.4-8.2); UREA NITROGEN 15 mg/dL (7-18)
[2024-02-22 13:01] LABS: INFLUENZA B NAA NEGATIVE (NEGATIVE); RESPIRATORY SYNCYTIAL VIR NAA NEGATIVE (NEGATIVE)
[2024-02-22] MEDS ORDERED: LEVOFLOXACIN500 MG PO (14:42)
[2024-02-22] MEDS ORDERED: CEFTRIAXONE/SODIUM CHLORIDE 2 GM/100 ML PIGGYBACK IV ONE (14:45)
[2024-02-22] MEDS ORDERED: AZITHROMYCIN/DEXTROSE 500 MG/250 ML PIGGYBACK IV ONE (14:45)
[2024-02-22] MEDS ORDERED: ALBUTEROL/IPRATROPIUM 3 ML NEB INH ONE (14:45)
[2024-02-22 16:33] VITALS: BP 129/84
--- NOTE | 2024-02-23 11:29 | EKG ---
[facility] [address] [facility] [place] [place] [address] Signed Normal sinus rhythm Normal ECG When compared with ECG of 14-FEB-2024 14:36, No significant change was found Confirmed by Zack Manrique MD ([id number]) on 02/23/2024 11:29:36 AM Electronically Signed By: ZACK MANRIQUE 02/23/24 1129 PATIENT NAME: ZACHARY OBRIENN Electrocardiogram DATE OF : 58 PHYSICIAN: ZACK MANRIQUE REPORT #: [id number] REPORT IS CONFIDENTIAL AND NOT TO BE RELEASED WITHOUT AUTHORIZATION
== END 2024-02-22 16:36 | disposition home or self-care (01) ==
LOC: ED 11:42
PROVIDERS: Emergency Medicine
DX: J44.1 Chronic obstructive pulmonary disease with (acute) exacerbation (principal); J44.0 Chronic obstructive pulmonary disease with (acute) lower respiratory infection; J18.9 Pneumonia, unspecified organism; U07.1 COVID-19; I10 Essential (primary) hypertension; Z87.891 Personal history of nicotine dependence; Z99.81 Dependence on supplemental oxygen; Z88.0 Allergy status to penicillin; Z88.5 Allergy status to narcotic agent; Z88.1 Allergy status to other antibiotic agents; Z88.2 Allergy status to sulfonamides; Z88.8 Allergy status to other drugs, medicaments and biological substances; Z79.51 Long term (current) use of inhaled steroids; Z79.899 Other long term (current) drug therapy
CPT/HCPCS: 36415; 71045; 80053; 83735; 83880; 84484; 85025; 87502; 93005; 93010; 94640; 96365; 96367; 96375; 99285-25; J0456; J0696; J2919; U0002